=== PATIENT | female | born 1960 | race Caucasian/White ===

== ENCOUNTER 2016-11-08 07:41 | Day surgery (SDC) | payer OTHER ==
[2016-11-05 14:45] LABS: BLOOD UREA NITROGEN 25 mg/dL (7-18)
[2016-11-05 15:17] LABS: HEMATOCRIT 35.5 % (34.6-47.8); HEMOGLOBIN 11.4 g/dL (11.7-16.4); WHITE BLOOD COUNT 6.9 x10^3/uL (3.4-10)
[~2016-11-08] VITALS: Ht 177.8 cm; Wt 69.0 kg
[~2016-11-08 07:41] MED LIST: DICL50TA4 PO; HYDR-3240 PO; METH500T7 PO; ZOLP-413 PO
[2016-11-08 08:18] VITALS: BP 92/67
[2016-11-08] MEDS ORDERED: LACTATED RINGERS 1,000 ML IV SCH (08:22)
[2016-11-08] MEDS ORDERED: LYRICA PO (08:23)
[2016-11-08] MEDS ORDERED: MIDAZOLAM 1 MG/ML, 2ML ONE (09:31)
[2016-11-08] MEDS ORDERED: LIDOCAINE/PF 1%, 30ML ONE (09:31)
[2016-11-08] MEDS ORDERED: FENTANYL PF 100 MCG/2ML ONE ×2 (09:31)
[2016-11-08] MEDS ORDERED: KETOROLAC 30 MG/1 ML ONE (09:40)
[2016-11-08] MEDS ORDERED: PROPOFOL 10 MG/ML, 50ML ONE (09:40)
[2016-11-08] MEDS ORDERED: ONDANSETRON 2MG/ML, 2ML ONE (09:40)
[2016-11-08] MEDS ORDERED: DEXAMETHASONE 4 MG/ML, 1ML ONE (09:40)
[2016-11-08] MEDS ORDERED: PROMETHAZINE 25 MG/ML, 1ML IV PRN (10:00)
[2016-11-08] MEDS ORDERED: ACETAMINOPHEN 325 MG TABLET PO PRN (10:00)
[2016-11-08] MEDS ORDERED: HYDROmorphone 1 MG/ML, 1ML IV PRN (10:00)
[2016-11-08] MEDS ORDERED: ONDANSETRON 2MG/ML, 2ML IVPush PRN (10:00)
[2016-11-08] MEDS ORDERED: OXYcodone 5 MG/5 ML ORAL.SOL UDC PO PRN (10:00)
[2016-11-08] MEDS ORDERED: FENTANYL PF 100 MCG/2ML IV PRN (10:00)
[2016-11-08] MEDS ORDERED: MIDAZOLAM 1 MG/ML, 2ML IV PRN (10:00)
[2016-11-08] MEDS ORDERED: ACETAMINOPHEN 650 MG/20.3 ML UDC ONE (10:49)
== END 2016-11-08 13:20 ==
LOC: OUT 07:41
PROVIDERS: ATTEND Obstetrics & Gynecology Gynecology
DX: N95.0 Postmenopausal bleeding (principal); N84.0 Polyp of corpus uteri; Z88.6 Allergy status to analgesic agent; Z86.39 Personal history of other endocrine, nutritional and metabolic disease; Z98.890 Other specified postprocedural states
CPT/HCPCS: 36415; 58558; 80048; 81001; 85025; 87086; 88305; J1100; J1885; J2250; J2405; J2704; J3010; J3490; J7120

== ENCOUNTER 2020-08-18 12:01 | Emergency (ER) | payer OTHER ==
[~2020-08-18] VITALS: Ht 177.8 cm; Wt 70.8 kg
[~2020-08-18 12:01] MED LIST changes: +HYDR-2214 PO; -HYDR-3240 PO; +LYRICA PO; +METH-639 PO; -METH500T7 PO
[2020-08-18] MEDS ORDERED: SODIUM CHLORIDE 0.9% 1,000ML IVBOLUS ONE (12:30)
--- NOTE | 2020-08-18 12:54 | NUR ---
PT PRESENTS TO ED WITH C/O GENERALIZED WEANESS X 6 MONTHS AND L FOOT TINGLING X 2 WEEKS. PT STATES THEY SAW PCP FOR TINGLING IN FOOT AND GOT LAB RESULT OF HGB 6 AND WAS TOLD TO COME HERE. PT A&O, RESPS EVEN AND UNLABORED, PAIGE HAYNES. ERPA AT BEDSIDE FOR INITIAL ASSESSMENT
[2020-08-18 13:03] LABS: MEAN CORPUSCULAR HEMOGLOBIN 17.2 pg (27.0-34.8); MEAN CORPUSCULAR HGB CONC 30.1 g/dL (32.4-35.8); MEAN PLATELET VOLUME 8.3 fL (7.4-10.4); PLATELET COUNT 376 x10^3/uL (130-400); RED BLOOD COUNT 3.76 x10^6/uL (3.82-5.3); RED CELL DISTRIBUTION WIDTH 19.8 % (9.6-15.2)
[2020-08-18 13:11] LABS: ALANINE AMINOTRANSFERASE 18 U/L (12-78); ANION GAP 6 mmol/L (5-15); CALCIUM 7.9 mg/dL (8.5-10.1); CHLORIDE 108 mmol/L (98-107)
[2020-08-18 13:16] LABS: <PLATELET ESTIMATE> INCREASED; <PLT MORPHOLOGY> NORMAL PLT MORPH; ALKALINE PHOSPHATASE 76 U/L (45-117); ANISOCYTOSIS 2+; BAND#(MANUAL) 0.06 x10^3/uL; BANDS%(MANUAL) 1 % (0-7); BILIRUBIN,TOTAL 0.4 mg/dL (0.2-1.0); CREATININE 0.91 mg/dL (0.55-1.02); EOS#(MANUAL) 0.06 x10^3/uL (0.0-0.4); EOS% (MANUAL) 1 % (1-7); HYPOCHROMIA 2+; LYMPHS% (MANUAL) 36 % (22-44); MICROCYTOSIS 2+; MONOS#(MANUAL) 0.19 x10^3/uL (0.3-2.7); MONOS% (MANUAL) 3 % (2-9); POLYCHROMASIA 1+; SEG#(MANUAL) 3.78 x10^3/uL (1.8-6.8); SEGS% (MANUAL) 59 % (42-75); TOTAL PROTEIN 6.8 g/dL (6.4-8.2); TROPONIN I < 0.015 ng/mL (0.000-0.045)
[2020-08-18 13:17] LABS: TEAR DROPS 1+
[2020-08-18 13:53] VITALS: BP 109/61
[2020-08-18 13:58] VITALS: BP 109/61
[2020-08-18 14:01] VITALS: BP 104/55
[2020-08-18 14:13] VITALS: BP 109/59
[2020-08-18 14:16] VITALS: BP 104/58
--- NOTE | 2020-08-18 14:20 | NUR ---
blood transfusing, pt tolerating well, asymptomatic, vss, nadn. pt a&o, resps even and unlabored, no complaints at this time.
--- NOTE | 2020-08-18 15:33 | NUR ---
blood transfusion finished, normal saline bolus infusing. vss, nadn, asymptomatic.
--- NOTE | 2020-08-18 15:35 | NUR ---
report given to ventura ghotra
--- NOTE | 2020-08-18 15:50 | NUR ---
BREAK RN: BLOOD DONE. PT REPORTS SHE WANTS TO GO HOME. PT UP FOR RECHECK. VS STABLE. NO ACUTE DISTRESS NOTED. CALL LIGHT IN PLACE. WILL CONTINUE TO MONITOR WHILE PRIMARY RN IS ON BREAK.
--- NOTE | 2020-08-18 16:17 | NUR ---
REPORT GIVEN TO BETHANIE SHANE AND BETHANIE SPARKS
--- NOTE | 2020-08-18 16:20 | NUR ---
REPORT RECEIVED FROM BREAK BETHANIE ALBRECHT. PT RESTING ON GURNEY, A&O, RESPS EVEN AND UNLABORED. BLOOD INFUSED, AWAITING DC ORDERS AND PAPERWORK FROM MD AT THIS TIME.
[2020-08-18 16:36] VITALS: BP 126/65
--- NOTE | 2020-08-18 16:53 | NUR ---
PT EDUCATED ON DISCHARGE INSTRUCTIONS, FOLLOW-UP, AND RETURN CRITERIA, VERBALIZED UNDERSTANDING. PT A&O, RESPS EVEN AND UNLABORED, VSS, NADN. AMBULATORYU TO DISCHARGE WITH STEADY GAIT.
== END 2020-08-18 17:03 | disposition home or self-care (01) ==
LOC: ED 13:09
DX: D64.9 Anemia, unspecified (principal); R07.9 Chest pain, unspecified
CPT/HCPCS: 36415; 36430; 71045; 80053; 83690; 84484; 85025; 86850; 86900; 86923; 93005; 96360; 99285; J7030; P9016

== ENCOUNTER 2020-08-22 16:39 | Emergency (ER) | payer OTHER ==
[~2020-08-22] VITALS: Ht 177.8 cm; Wt 69.3 kg
[2020-08-22 17:29] LABS: BASOPHILS % (AUTO) 1 % (0-1); EOSINOPHILS % (AUTO) 0 % (1-7); LYMPHOCYTES % (AUTO) 18 % (22-44); MEAN CORPUSCULAR HEMOGLOBIN 19.2 pg (27.0-34.8); MEAN CORPUSCULAR HGB CONC 30.8 g/dL (32.4-35.8); MONOCYTES % (AUTO) 5 % (2-9); NEUTROPHILS % (AUTO) 76 % (42-75); PLATELET COUNT 388 x10^3/uL (130-400); RED BLOOD COUNT 4.76 x10^6/uL (3.82-5.3); RED CELL DISTRIBUTION WIDTH 24.9 % (9.6-15.2)
[2020-08-22 17:42] LABS: ALANINE AMINOTRANSFERASE 21 U/L (12-78); ALBUMIN 3.3 g/dL (3.4-5.0); ANION GAP 6 mmol/L (5-15); CALCIUM 8.5 mg/dL (8.5-10.1); CHLORIDE 108 mmol/L (98-107); CREATININE 0.88 mg/dL (0.55-1.02)
[2020-08-22 17:44] LABS: ALKALINE PHOSPHATASE 86 U/L (45-117); BILIRUBIN,TOTAL 0.3 mg/dL (0.2-1.0); TOTAL PROTEIN 7.8 g/dL (6.4-8.2)
--- NOTE | 2020-08-22 18:14 | NUR ---
administration physician: Pt ambulatory to room from lobby at this time.
--- NOTE | 2020-08-22 18:25 | NUR ---
PROVIDER AT BEDSIDE TO EVALUATE PT.
--- NOTE | 2020-08-22 18:37 | NUR ---
PT STATES SHE HAD A BLOOD TRANSFUSION ON FRIDAY. STARTED BLEEDING VAGINALLY LAST NIGHT AND MD TOLD PT TO RETURN TO ER. ULTRASOUND AT BEDSIDE.
[2020-08-22 18:40] LABS: <PLATELET ESTIMATE> ADEQUATE; LARGE PLATELETS 1+
[2020-08-22 18:41] LABS: ANISOCYTOSIS 1+; HYPOCHROMIA 1+; MICROCYTOSIS 1+
[2020-08-22 18:42] LABS: STOMATOCYTES 1+; TEAR DROPS 1+
--- NOTE | 2020-08-22 19:12 | NUR ---
RECEIVED BS REPORT FROM BETHANIE WANG TO ASSUME CARE OF PT. AT THIS TIME. PT. JUST HAD PELVIC US COMPLETED. PADS PROVIDED TO PT. PT. DENIES FURTHER NEEDS AT THIS TIME.
[2020-08-22] MEDS ORDERED: MEDROXYPROGESTERONE ACETATE 150 MG/ML IM ONE (20:30)
--- NOTE | 2020-08-22 20:30 | NUR ---
MED REQUEST SENT TO PHARMACY.
[2020-08-22 20:48] VITALS: BP 118/60
== END 2020-08-22 21:10 | disposition home or self-care (01) ==
LOC: ED 17:00
DX: N92.4 Excessive bleeding in the premenopausal period (principal); J45.909 Unspecified asthma, uncomplicated
CPT/HCPCS: 36415; 76830; 80053; 85025; 86850; 86900; 96372; 99284; J1050

== ENCOUNTER → 2020-10-19 | Outpatient (CLI) | payer OTHER ==
[~2020-10-19] MED LIST changes: +CRAN1CAP9 PO; +ESTR1TAB15 PO; +FERR325T23 PO; +GABA300C PO; +MAGN100T3 PO; +METH-640 PO; +Norco PO; +TRAZ50TA66 PO; +VITA1CAP PO
[2020-10-19 10:55] LABS: BASOPHILS % (AUTO) 1 % (0-1); EOSINOPHILS % (AUTO) 0 % (1-7); LYMPHOCYTES % (AUTO) 17 % (22-44); MEAN CORPUSCULAR HEMOGLOBIN 25.4 pg (27.0-34.8); MEAN CORPUSCULAR HGB CONC 32.8 g/dL (32.4-35.8); MEAN PLATELET VOLUME 8.2 fL (7.4-10.4); MONOCYTES % (AUTO) 7 % (2-9); NEUTROPHILS % (AUTO) 75 % (42-75); PLATELET COUNT 327 x10^3/uL (130-400); RED BLOOD COUNT 4.56 x10^6/uL (3.82-5.3); RED CELL DISTRIBUTION WIDTH 31.4 % (9.6-15.2)
[2020-10-19 11:07] LABS: ANION GAP 6 mmol/L (5-15); CALCIUM 8.5 mg/dL (8.5-10.1); CHLORIDE 111 mmol/L (98-107); CREATININE 0.85 mg/dL (0.55-1.02)
[2020-10-19 11:20] LABS: ANISOCYTOSIS 2+; MICROCYTOSIS 1+
[2020-10-19 11:22] LABS: <PLATELET ESTIMATE> ADEQUATE; <PLT MORPHOLOGY> NORMAL PLT MORPH; OVALOCYTES 1+
== END | disposition home or self-care (01) ==
LOC: STAR 10:11
PROVIDERS: ATTEND Obstetrics & Gynecology
DX: Z01.818 Encounter for other preprocedural examination (principal); N92.0 Excessive and frequent menstruation with regular cycle; D64.9 Anemia, unspecified
CPT/HCPCS: 36415; 71046; 80048; 84702; 85025

== ENCOUNTER 2020-10-23 10:04 | Day surgery (SDC) | payer OTHER ==
[~2020-10-23] VITALS: Ht 177.8 cm; Wt 69.2 kg
[2020-10-23] MEDS ORDERED: CHLORHEXIDINE 15 ML UDC ONE (10:47)
[2020-10-23] MEDS ORDERED: LACTATED RINGERS 1,000 ML IV SCH (11:00)
[2020-10-23] MEDS ORDERED: CHLORHEXIDINE 15 ML UDC PO ONE (11:00)
[2020-10-23 11:14] VITALS: BP 108/77
[2020-10-23] MEDS ORDERED: BUPIVACAINE/PF 0.25% ONE (11:30)
[2020-10-23] MEDS ORDERED: FLUORESCEIN SODIUM 500 MG/5 ML ONE (11:30)
[2020-10-23] MEDS ORDERED: EPINEPHRINE 1 MG/ML, 1ML ONE (11:30)
[2020-10-23] MEDS ORDERED: FENTANYL PF 250 MCG/5ML ONE (12:17)
[2020-10-23] MEDS ORDERED: MIDAZOLAM 1 MG/ML, 2ML ONE (12:17)
[2020-10-23] MEDS ORDERED: ACETAMINOPHEN 500 MG TABLET ONE (12:18)
[2020-10-23] MEDS ORDERED: PROPOFOL 10 MG/ML, 20ML ONE (12:22)
[2020-10-23] MEDS ORDERED: DEXAMETHASONE 4 MG/ML, 1ML ONE ×3 (12:22→12:25)
[2020-10-23] MEDS ORDERED: CEFAZOLIN 1,000 MG ONE ×2 (12:22)
[2020-10-23] MEDS ORDERED: ACETAMINOPHEN 500 MG TABLET PO ONE (12:30)
[2020-10-23] MEDS ORDERED: FENTANYL PF 100 MCG/2ML ONE ×3 (13:13→14:12)
[2020-10-23] MEDS ORDERED: OXYcodone 5 MG/5 ML ORAL.SOL UDC PO PRN (14:00)
[2020-10-23] MEDS ORDERED: PROMETHAZINE 25 MG/ML, 1ML IVPush PRN (14:00)
[2020-10-23] MEDS ORDERED: ALBUTEROL SULFATE 2.5 MG/3 ML NPPB PRN (14:00)
[2020-10-23] MEDS ORDERED: ONDANSETRON 2MG/ML, 2ML IVPush PRN (14:00)
[2020-10-23] MEDS ORDERED: hydrALAzine 20 MG/ML, 1ML IV PRN (14:00)
[2020-10-23] MEDS ORDERED: PROMETHAZINE 12.5 MG SUPP PR PRN (14:00)
[2020-10-23] MEDS ORDERED: HYDROmorphone 1 MG/ML, 1ML INJ IVPush PRN (14:00)
[2020-10-23] MEDS ORDERED: DIPHENHYDRAMINE 50 MG/ML, 1ML IVPush PRN ×2 (14:00)
[2020-10-23] MEDS ORDERED: MIDAZOLAM 1 MG/ML, 2ML IV PRN (14:00)
[2020-10-23] MEDS ORDERED: EPHEDRINE 50 MG/ML, 1ML IVPush PRN (14:00)
[2020-10-23] MEDS ORDERED: LORazepam 2 MG/ML, 1ML IVPush PRN (14:00)
[2020-10-23] MEDS ORDERED: LABETALOL 5MG/ML, 20ML IV PRN (14:00)
[2020-10-23] MEDS ORDERED: OXYcodone 5 MG/5 ML ORAL.SOL UDC ONE (14:12)
[2020-10-23] MEDS: FENTANYL PF 100 MCG/2ML IV PRN ×2 (14:15→14:35)
[2020-10-23] MEDS ORDERED: DIAZEPAM 5 MG/ML, 2ML ONE (14:40)
[2020-10-23] MEDS: DIAZEPAM 5 MG/ML, 2ML IVPush PRN ×2 (14:41→14:55)
[2020-10-23] MEDS ORDERED: KETOROLAC 30 MG/1 ML IVPush PRN (16:00)
[2020-10-23] MEDS ORDERED: KETOROLAC 30 MG/1 ML ONE (16:02)
== END 2020-10-23 17:10 | disposition home or self-care (01) ==
LOC: OUT 10:04
PROVIDERS: ATTEND Obstetrics & Gynecology
DX: N92.1 Excessive and frequent menstruation with irregular cycle (principal); D25.1 Intramural leiomyoma of uterus; D50.0 Iron deficiency anemia secondary to blood loss (chronic); N88.8 Other specified noninflammatory disorders of cervix uteri; N83.8 Other noninflammatory disorders of ovary, fallopian tube and broad ligament; Z88.5 Allergy status to narcotic agent; Z88.8 Allergy status to other drugs, medicaments and biological substances; F15.90 Other stimulant use, unspecified, uncomplicated; F17.210 Nicotine dependence, cigarettes, uncomplicated; Z79.1 Long term (current) use of non-steroidal anti-inflammatories (NSAID); Z79.899 Other long term (current) drug therapy; Z98.890 Other specified postprocedural states
CPT/HCPCS: 58552; 88307; J0171; J0690; J1100; J1885; J2250; J2704; J3010; J3360; J7120

== ENCOUNTER 2020-11-22 09:39 | Emergency (ER) | payer OTHER ==
[~2020-11-22] VITALS: Ht 177.8 cm; Wt 70.3 kg
[2020-11-22 09:50] VITALS: BP 108/66
--- NOTE | 2020-11-22 13:43 | NUR ---
TO ROOM FROM LOBBY. ASSUMED CARE OF PT AT THIS TIME.
[2020-11-22] MEDS ORDERED: DIPH,PERTUSS(ACELL),TET VAC/PF 0.5 ML IM-VACC ONE ×2 (14:02→14:30)
[2020-11-22 14:38] LABS: BASOPHILS % (AUTO) 1 % (0-1); EOSINOPHILS % (AUTO) 1 % (1-7); LYMPHOCYTES % (AUTO) 30 % (22-44); MEAN CORPUSCULAR HGB CONC 33.5 g/dL (32.4-35.8); MEAN PLATELET VOLUME 7.1 fL (7.4-10.4); MONOCYTES % (AUTO) 6 % (2-9); NEUTROPHILS % (AUTO) 63 % (42-75); PLATELET COUNT 332 x10^3/uL (130-400); RED BLOOD COUNT 4.73 x10^6/uL (3.82-5.3)
[2020-11-22 14:46] LABS: ALBUMIN 3.3 g/dL (3.4-5.0); ANION GAP 4 mmol/L (5-15); CALCIUM 8.4 mg/dL (8.5-10.1); CHLORIDE 108 mmol/L (98-107); CREATININE 0.83 mg/dL (0.55-1.02)
--- NOTE | 2020-11-22 14:49 | NUR ---
PT'S CHART UP FOR RECHECK
[2020-11-22 15:08] LABS: <PLATELET ESTIMATE> ADEQUATE; <PLT MORPHOLOGY> NORMAL PLT MORPH
[2020-11-22 15:09] LABS: ANISOCYTOSIS 1+; HYPOCHROMIA 1+; MICROCYTOSIS 1+
[2020-11-22] MEDS ORDERED: BACITRACIN ZINC OINT 500U/GM, 0.9 GM ONE (15:43)
== END 2020-11-22 16:10 | disposition home or self-care (01) ==
LOC: ED 10:12
DX: S61.231A Puncture wound without foreign body of left index finger without damage to nail, initial encounter (principal); L03.012 Cellulitis of left finger; X58.XXXA Exposure to other specified factors, initial encounter; Y93.9 Activity, unspecified; Y92.89 Other specified places as the place of occurrence of the external cause; Y99.8 Other external cause status; F17.210 Nicotine dependence, cigarettes, uncomplicated
CPT/HCPCS: 29130; 36415; 80048; 82040; 85025; 90471; 90715; 99284